=== PATIENT | female | born 1965 | race Caucasian/White ===

== ENCOUNTER 2022-08-01 09:07 | Day surgery (SDC) | payer OTHER ==
[~2022-08-01] VITALS: Ht 162.6 cm; Wt 70.3 kg
[2022-08-01] MEDS ORDERED: fentaNYL citrate 0.05 MG/ML VIAL ONE (12:19)
[2022-08-01] MEDS ORDERED: LIDOCAINE 2% 100 MG/5 ML UJET TP ONE ×2 (12:19→14:05)
[2022-08-01] MEDS ORDERED: fentaNYL citrate 0.05 MG/ML VIAL IVP ONE (14:00)
== END 2022-08-01 13:46 | disposition home or self-care (01) ==
LOC: MDS 09:07 → MMU 09:07 → MDS 13:46
PROVIDERS: ATTEND Internal Medicine Gastroenterology
DX: Z12.11 Encounter for screening for malignant neoplasm of colon (principal); E78.00 Pure hypercholesterolemia, unspecified; G43.909 Migraine, unspecified, not intractable, without status migrainosus; Z85.850 Personal history of malignant neoplasm of thyroid; Z85.3 Personal history of malignant neoplasm of breast; Z90.49 Acquired absence of other specified parts of digestive tract; Z79.899 Other long term (current) drug therapy; Z88.5 Allergy status to narcotic agent
CPT/HCPCS: 45378; J3010